=== PATIENT | male | born 1960 | race Hispanic/Latino ===

== ENCOUNTER 2021-02-13 20:55 | Emergency (ER) | payer OTHER ==
[~2021-02-13] VITALS: Ht 167.6 cm; Wt 65.0 kg
[2021-02-13 21:37] LABS: HEMATOCRIT 42.9 % (39.0-50.0); HEMOGLOBIN 14.3 g/dl (14.0-18.0); MEAN CELL VOLUME 84.1 fL CALC (80.0-100.0); MEAN CORPUSCULAR HGB CONC 33.3 g/dL CAL (32.0-36.0); NEUT# 5.05 thou/uL (1.82-7.42); RED BLOOD COUNT 5.1 mill/uL (4.70-6.10); RED CELL DISTRI WIDTH 13.6 % (11.5-15.5)
[2021-02-13] MEDS ORDERED: TAM75CAP PO (22:34)
[2021-02-13 22:55] VITALS: BP 132/70
== END 2021-02-13 22:58 | disposition home or self-care (01) | DRG 195 ==
LOC: ED 20:55
PROVIDERS: Family Medicine
DX: J10.1 Influenza due to other identified influenza virus with other respiratory manifestations (principal); F17.210 Nicotine dependence, cigarettes, uncomplicated

== ENCOUNTER 2023-03-11 05:41 | Emergency (ER) | payer SELFPAY ==
[~2023-03-11] VITALS: Ht 167.6 cm; Wt 65.0 kg
[~2023-03-11 05:41] MED LIST: TAM75CAP PO
[2023-03-11 05:51] VITALS: BP 160/108
[2023-03-11] MEDS ORDERED: AMOX/K CLAV875 M1 PO (05:58)
[2023-03-11 06:00] VITALS: BP 170/99
[2023-03-11 06:20] VITALS: BP 170/99
== END 2023-03-11 06:25 | disposition home or self-care (01) | DRG 159 ==
LOC: ED 05:41
DX: K08.139 Complete loss of teeth due to caries, unspecified class (principal)